=== PATIENT | female | born 1970 | race Caucasian/White ===

== ENCOUNTER 2016-09-20 09:04 | Emergency (ER) | payer MEDICAID ==
[~2016-09-20] VITALS: Ht 162.6 cm; Wt 98.5 kg
[~2016-09-20 09:04] MED LIST: PROM25TA5 PO; TRAM50 PO
[2016-09-20 09:19] VITALS: BP 125/87; PULSE 74; RESP 16; TEMP 98.1; O2SAT 98
--- NOTE | 2016-09-20 10:25 | PD ---
HPI Chief Complaint: Musculoskeletal Complaint Time Seen by Provider: 10:15 Travel History International Travel<30 days: No Contact w/Intl Traveler<30days: No Traveled to known affect area: No History of Present Illness HPI This is a 46 -year-old female who presents to the emergency department with left -sided hip pain that's been going on for years, intermittent, worse with walking , improved with rest. She says the pain starts at her hip and radiates down to her knee and she feels like something is rubbing on itself when she walks. She also says that 3 days ago she lifted a couch and she's been having some pain in the side of her neck and in her shoulder particularly with movement. She does have some numbness and tingling in the left arm intermittently. She says she was seen here in the emergency department in the past and told she had a strained muscle in her leg but it never got better. She doesn't have a primary care doctor. PFSH Past Medical History Medical History: Denies Significant Hx Diminished Hearing: No Immunizations Current: Yes Tetanus Vaccination: Unknown Influenza Vaccination: No ?: Not Menopausal: Yes : 6 Para: 5 Miscarriage: 1 : 0 Tubal Ligation: Yes Past Surgical History Section: Yes (X1) Other Surgery: Yes (JAW) Social History Alcohol Use: No (DENIES) Tobacco Use: No (DENIES) Substance Use: No (DENIES) Allergies-Medications (Allergen,Severity, Reaction): Coded Allergies: No Known Allergies (Verified , 09/20/16) Reported Meds & Prescriptions Reported Meds & Active Scripts Active No Active Prescriptions or Reported Medications Review of Systems General / Constitutional: No: Fever Gastrointestinal: No: Nausea, Vomiting Physical Exam Narrative GENERAL: Well-nourished, well-developed patient. SKIN: Warm and dry. HEAD: Normocephalic. EYES: No scleral icterus. No injection or drainage. NECK: Supple, trachea midline. CARDIOVASCULAR: Regular rate and rhythm without murmurs. 2+ left DP pulse with normal capillary refill in the left foot. 2+ left radial pulse with normal capillary refill in the hand. RESPIRATORY: Breath sounds equal bilaterally. No accessory muscle use. GASTROINTESTINAL: Abdomen soft, non-tender, nondistended. MUSCULOSKELETAL: No cyanosis, or edema. Full range of motion of the left hip, some pain with hip flexion and hip abduction. Tender to palpation along the left trapezius muscle with no focal cervical spine tenderness. Neuro: Sensation and motor grossly intact in the left forearm. Data Data Last Documented VS Vital Signs Date Time Temp Pulse Resp B/P Pulse Ox O2 Delivery O2 Flow Rate FiO2 09/20/16 09:19 98.1 74 16 125/87 98 Orders Hip, Uni(Ap&Lat) Wo Ap Pelvis (09/20/16 ) MDM Medical Decision Making Medical Screen Exam Complete: Yes Emergency Medical Condition: Yes Interpretation(s) X-ray: No acute process Differential Diagnosis Osteoarthritis, bursitis, malignancy Narrative Course This is a 46-year-old female who presents to the emergency department with hip pain. This is been going on since at least 2013 when she was seen here in the emergency department and diagnosed with iliotibial band syndrome. She says it hasn't gotten any better. I did perform an x-ray which was negative for acute pathology or malignancy. Otherwise the patient's symptoms are subacute and I think she is appropriate for outpatient anti-inflammatory treatment and follow- up with orthopedics. Diagnosis Primary Impression: Hip pain Qualified Code: M25.552 - Pain of left hip joint Patient Instructions: General Instructions Additional Instructions: If you develop weakness of your legs, difficulty walking, numbness of her legs or your genital or rectal area, loss of your bowel or bladder, or difficulty urinating return to the emergency department immediately. Followup with your primary care physician in one week if your symptoms have not improved. Med/Other Pt SpecificInfo: Prescription(s) given Scripts Naproxen 500 Mg [id number] Mg PO BID PRN (PAIN SCALE 4 TO 10) #20 TAB Prov:Ria Mariano MD 09/20/16 Disposition: 01 DISCHARGE HOME Condition: Stable Ria Mariano MD Sep 20, 2016 10:24
--- NOTE | 2016-09-20 11:08 | RADHPO ---
EXAM DATE/TIME: 09/20/2016 10:26 [facility] COMPARISON: No previous studies available for comparison. INDICATIONS : Left hip pain for 1 yr. no known injury MEDICAL HISTORY : None. SURGICAL HISTORY : None. ENCOUNTER: Initial ACUITY: 1 year PAIN SCORE: 7/10 LOCATION: Left hip FINDINGS: AP and lateral views of the left hip demonstrate no fracture or dislocation. Mineralization is within normal limits and there is no significant arthropathy. No soft tissue abnormality is identified. The re is a nonspecific density overlying the left iliac bone on the lateral projection. CONCLUSION: 1. No significant left hip abnormality is identified. 2. Nonspecific density overlying the left iliac bone only visualized on the lateral view. Micheal Su MD on September 20, 2016 at 11:05 Board Certified Radiologist. This report was verified electronically.
[2016-09-20] MEDS ORDERED: NAPR500T PO (11:17)
== END 2016-09-20 11:29 | disposition home or self-care (01) ==
LOC: PHED 09:04
DX: M25.552 Pain in left hip (principal); M54.2 Cervicalgia; R20.0 Anesthesia of skin; R20.2 Paresthesia of skin; X50.0XXA Overexertion from strenuous movement or load, initial encounter
CPT/HCPCS: 73502; 99283

== ENCOUNTER 2017-01-15 00:19 | Emergency (ER) | payer MEDICAID ==
[~2017-01-15] VITALS: Ht 162.6 cm; Wt 100.0 kg
[~2017-01-15 00:19] MED LIST changes: +NAPR500T PO; -PROM25TA5 PO; -TRAM50 PO
[2017-01-15 00:23] VITALS: BP 133/93; PULSE 98; RESP 16; TEMP 99.4; O2SAT 96
[2017-01-15] MEDS ORDERED: SODIUM CHLORIDE 0.9% FLUSH 10 ML FLUSH IVF PRN (01:45)
[2017-01-15 01:49] VITALS: O2SAT 97
[2017-01-15 02:00] LABS: AUTOMATED NEUTROPHIL # 4.6 TH/MM3 (1.8-7.7); BASOPHIL % 0.6 % (0.0-2.0); EOSINOPHIL # 0.1 TH/MM3 (0-0.4); HEMATOCRIT 38.9 % (35.0-46.0); HEMO FLAGS DIFF FINAL; LYMPH % 20.7 % (9.0-44.0); LYMPHOCYTE # 1.4 TH/MM3 (1.0-4.8); MEAN CELL VOLUME 90.6 FL (80.0-100.0); MEAN CORPUSCULAR HEMOGLOBIN 30.9 PG (27.0-34.0); MEAN CORPUSCULAR HGB CONC 34.1 % (32.0-36.0); MONO % 8.7 % (0.0-8.0); PLATELET COUNT 208 TH/MM3 (150-450); RED CELL DISTRIBUTION WIDTH 13.3 % (11.6-17.2); WHITE BLOOD COUNT 6.7 TH/MM3 (4.0-11.0)
--- NOTE | 2017-01-15 02:16 | RADRPT ---
EXAM DATE/TIME: 01/15/2017 02:05 [facility] COMPARISON: No previous studies available for comparison. INDICATIONS : Chest pain with cough. MEDICAL HISTORY : None. SURGICAL HISTORY : Tubal ligation. ENCOUNTER: Initial ACUITY: 1 day PAIN SCORE: 8/10 LOCATION: Bilateral chest FINDINGS: PA and lateral views of the chest demonstrate the lungs to be symmetrically aerated without evidence of mass, solid infiltrate or effusion. There is mild streaky opacity in the right lower lobe. The car diomediastinal contours are unremarkable. Osseous structures are intact. CONCLUSION: 1. Mild streaky opacity in the right lower lobe which could indicate an early pneumonia. 2. No focal consolidation. Price Otero MD on January 15, 2017 at 2:14 Board Certified Radiologist. This report was verified electronically.
[2017-01-15 02:28] LABS: ALT (GPT) 56 U/L (10-53); ANION GAP 7 MEQ/L (5-15); AST (GOT) 30 U/L (15-37); BICARBONATE 26.6 MEQ/L (21.0-32.0); BLOOD UREA NITROGEN 13 MG/DL (7-18); CHLORIDE 102 MEQ/L (98-107); GLOMERULAR FILTRATION RATE 69 ML/MIN (>89); POTASSIUM 4.1 MEQ/L (3.5-5.1); SODIUM (NA) 136 MEQ/L (136-145)
[2017-01-15 02:30] LABS: ALKALINE PHOSPHATASE 64 U/L (45-117); TOTAL BILIRUBIN ADULT 0.5 MG/DL (0.2-1.0)
[2017-01-15] MEDS ORDERED: LEVA750T PO (03:00)
[2017-01-15] MEDS ORDERED: LEVOFLOXACIN 750 MG TAB PO ONE (03:00)
--- NOTE | 2017-01-15 03:00 | PD ---
HPI Chief Complaint: Respiratory Symptoms Time Seen by Provider: 01:39 Travel History International Travel<30 days: No Contact w/Intl Traveler<30days: No Traveled to known affect area: No History of Present Illness HPI Patient is a 46-year-old female presents emergency department with cough and congestion for the past week. Patient states she was evaluated in urgent care center was prescribed Augmentin but she wasn't able to fill it because the pharmacy was out. She called the urgent care center and they told her over the phone the return to reach her because her chest x-ray was read as pneumonia and she needed to go to the emergency department for IV antibiotics and be seen. Patient denies any fever denies any history of immunocompromise denies any lung history. PFSH Past Medical History Diminished Hearing: No Immunizations Current: Yes Influenza Vaccination: No ?: Not Menopausal: Yes : 6 Para: 5 Miscarriage: 1 : 0 Tubal Ligation: Yes Past Surgical History Section: Yes (X1) Gynecologic Surgery: Yes () Oral Surgery: Yes (JAW) Other Surgery: Yes (JAW) Social History Alcohol Use: No (DENIES) Tobacco Use: No (DENIES) Substance Use: No (DENIES) Allergies-Medications (Allergen,Severity, Reaction): Coded Allergies: No Known Allergies (Verified , 01/15/17) Reported Meds & Prescriptions Reported Meds & Active Scripts Active Levaquin (Levofloxacin) 750 Mg Tab 750 Mg PO DAILY 10 Days Review of Systems Except as stated in HPI: all other systems reviewed are Neg Physical Exam Narrative GENERAL: Well-developed well-nourished no apparent distress SKIN: Focused skin assessment warm/dry. HEAD: Atraumatic. Normocephalic. EYES: Pupils equal and round. No scleral icterus. No injection or drainage. ENT: No nasal bleeding or discharge. Mucous membranes pink and moist. TMs clear bilaterally, oropharynx pink and moist. NECK: Trachea midline. No JVD. CARDIOVASCULAR: Regular rate and rhythm. No murmur appreciated. RESPIRATORY: No accessory muscle use. Faint rales heard in the right lower lobe.. Breath sounds equal bilaterally. No increased work of breathing. GASTROINTESTINAL: Abdomen soft, non-tender, nondistended. Hepatic and splenic margins not palpable. MUSCULOSKELETAL: No obvious deformities. No clubbing. No cyanosis. No edema. NEUROLOGICAL: Awake and alert. No obvious cranial nerve deficits. Motor grossly within normal limits. Normal speech. PSYCHIATRIC: Appropriate mood and affect; insight and judgment normal. Data Data Last Documented VS Vital Signs Date Time Temp Pulse Resp B/P Pulse Ox O2 Delivery O2 Flow Rate FiO2 01/15/17 01:49 97 Room Air 01/15/17 00:23 99.4 98 16 133/93 Orders Chest, Pa & Lat (01/15/17 ) Complete Blood Count With Diff (01/15/17 01:39) Comprehensive Metabolic Panel (01/15/17 01:39) Ecg Monitoring (01/15/17 01:39) Iv Access Insert/Monitor (01/15/17 01:39) Oximetry (01/15/17 01:39) Oxygen Administration (01/15/17 01:39) Sodium Chloride 0.9% Flush (Ns Flush) (01/15/17 01:45) Levofloxacin (Levaquin) (01/15/17 03:00) Labs Laboratory Tests Test 01/15/17 01:45 White Blood Count 6.7 TH/MM3 Red Blood Count 4.30 MIL/MM3 Hemoglobin 13.3 GM/DL Hematocrit 38.9 % Mean Corpuscular Volume 90.6 FL Mean Corpuscular Hemoglobin 30.9 PG Mean Corpuscular Hemoglobin 34.1 % Concent Red Cell Distribution Width 13.3 % Platelet Count 208 TH/MM3 Mean Platelet Volume 7.7 FL Neutrophils (%) (Auto) 69.0 % Lymphocytes (%) (Auto) 20.7 % Monocytes (%) (Auto) 8.7 % Eosinophils (%) (Auto) 1.0 % Basophils (%) (Auto) 0.6 % Neutrophils # (Auto) 4.6 TH/MM3 Lymphocytes # (Auto) 1.4 TH/MM3 Monocytes # (Auto) 0.6 TH/MM3 Eosinophils # (Auto) 0.1 TH/MM3 Basophils # (Auto) 0.0 TH/MM3 CBC Comment DIFF FINAL Differential Comment Sodium Level 136 MEQ/L Potassium Level 4.1 MEQ/L Chloride Level 102 MEQ/L Carbon Dioxide Level 26.6 MEQ/L Anion Gap 7 MEQ/L Blood Urea Nitrogen 13 MG/DL Creatinine 0.88 MG/DL Estimat Glomerular Filtration 69 ML/MIN Rate Random Glucose 158 MG/DL Calcium Level 9.0 MG/DL Total Bilirubin 0.5 MG/DL Aspartate Amino Transf 30 U/L (AST/SGOT) Alanine Aminotransferase 56 U/L (ALT/SGPT) Alkaline Phosphatase 64 U/L Total Protein 7.2 GM/DL Albumin 3.6 GM/DL MDM Medical Decision Making Medical Screen Exam Complete: Yes Emergency Medical Condition: Yes Differential Diagnosis Pneumonia, URI, bronchitis, sepsis unlikely. Narrative Course Patient roomed in emergency department, labs are reassuring, Last 24 hours Impressions Chest X-Ray 01/15/17 0000 Signed Impressions: Service Date/Time: December 02:05 - CONCLUSION: 1. Mild streaky opacity in the right lower lobe which could indicate an early pneumonia. 2. No focal consolidation. Price Otero MD Patient appears well in no obvious distress, she is low risk by PSI and curb 65 score is. She has no indication of sepsis. She is stable for discharge discussed symptomatic management returned ED criteria. We'll switch her Augmentin to Levaquin. Diagnosis Primary Impression: CAP (community acquired pneumonia) Med/Other Pt SpecificInfo: Prescription(s) given Scripts Levofloxacin (Levaquin)750 Mg [id number] Mg PO DAILY 10 Days Ref 0 Prov:Van Mata MD 01/15/17 Disposition: 01 DISCHARGE HOME Condition: Stable Van Mata MD January 15, 2017 03:00
== END 2017-01-15 03:40 | disposition home or self-care (01) ==
LOC: NEPC 00:19
DX: J18.9 Pneumonia, unspecified organism (principal)
CPT/HCPCS: 71020; 80053; 85025; 99283

== ENCOUNTER 2017-01-16 11:42 | Emergency (ER) | payer MEDICAID ==
[~2017-01-16 11:42] MED LIST changes: +LEVA750T PO; -NAPR500T PO
[2017-01-16 11:56] VITALS: BP 127/86; PULSE 89; RESP 16; TEMP 97.6; O2SAT 96
--- NOTE | 2017-01-16 11:56 | PD ---
HPI . here for a note to go back to work Chief Complaint: Medical Clearance Time Seen by Provider: 11:55 Travel History International Travel<30 days: No Contact w/Intl Traveler<30days: No Traveled to known affect area: No History of Present Illness HPI 46-year-old female who was seen for pneumonia here requesting a note to return to work. Patient says that she was given a an excuse until January 18, but she wants to return to work today. She denies any fever or chills. She has no complaints. PFSH Past Medical History Diminished Hearing: No Immunizations Current: Yes Menopausal: Yes : 6 Para: 5 Miscarriage: 1 : 0 Tubal Ligation: Yes Past Surgical History Section: Yes (X1) Gynecologic Surgery: Yes () Oral Surgery: Yes (JAW) Other Surgery: Yes (JAW) Social History Alcohol Use: No (DENIES) Tobacco Use: No (DENIES) Substance Use: No (DENIES) Allergies-Medications (Allergen,Severity, Reaction): Coded Allergies: No Known Allergies (Verified , 01/15/17) Reported Meds & Prescriptions Reported Meds & Active Scripts Active Levaquin (Levofloxacin) 750 Mg Tab 750 Mg PO DAILY 10 Days Review of Systems General / Constitutional: No: Fever Eyes: No: Visual changes HENT: No: Headaches Cardiovascular: No: Chest Pain or Discomfort Respiratory: No: Shortness of Breath Gastrointestinal: No: Abdominal Pain Genitourinary: No: Dysuria Musculoskeletal: No: Pain Skin: No Rash Neurologic: No: Weakness Psychiatric: No: Depression Endocrine: No: Polydipsia Hematologic/Lymphatic: No: Easy Bruising Physical Exam Narrative GENERAL: AAO x 3, no acute distress, Well-nourished, well-developed patient. SKIN: Warm and dry. No visible rashes or bruising. HEAD: Normocephalic and atraumatic. EYES: No scleral icterus. No injection or drainage. EOM intact, PERRLA ENT: No nasal drainage noted. Mucous membranes pink. Airway patent. NECK: Supple, trachea midline. No JVD. CARDIOVASCULAR: Regular rate and rhythm without murmurs, gallops, or rubs. RESPIRATORY: Breath sounds equal bilaterally. No accessory muscle use. No rhonchi or rales. GASTROINTESTINAL: Visual inspection normal EXTREMITIES: No cyanosis or edema. BACK: Nontender without obvious deformity. No CVA tenderness. PSYCH: AAO x 3, normal affect. Data Data Last Documented VS Vital Signs Date Time Temp Pulse Resp B/P Pulse Ox O2 Delivery O2 Flow Rate FiO2 01/16/17 11:56 97.6 89 16 127/86 96 Room Air MDM Medical Decision Making Medical Screen Exam Complete: Yes Emergency Medical Condition: Yes Medical Record Reviewed: Yes Differential Diagnosis Pneumonia, medical clearance, wellness exam Narrative Course This is a 46-year-old female here requesting a note to return to work. She has no complaints. She is taking her antibiotics. She denies any fever or chills. Diagnosis Primary Impression: CAP (community acquired pneumonia) Patient Instructions: General Instructions Departure Forms: Tests/Procedures, Work Release Enter return to work date: January 16, 2017 Additional Instructions: Continue taking medications as prescribed Med/Other Pt SpecificInfo: No Change to Meds Disposition: 01 DISCHARGE HOME Condition: Stable Arabella Hernandez January 16, 2017 11:55
== END 2017-01-16 12:06 | disposition home or self-care (01) ==
LOC: NEPK 11:42
DX: J18.9 Pneumonia, unspecified organism (principal)
CPT/HCPCS: 99282

== ENCOUNTER 2017-04-29 20:03 | Emergency (ER) | payer MEDICAID ==
[~2017-04-29] VITALS: Ht 162.6 cm; Wt 99.3 kg
[2017-04-29 20:11] VITALS: BP 128/82; PULSE 80; RESP 12; TEMP 98.2; O2SAT 99
--- NOTE | 2017-04-29 21:13 | PD ---
HPI Chief Complaint: Laceration/Skin Injury Time Seen by Provider: 21:02 Travel History International Travel<30 days: No Contact w/Intl Traveler<30days: No Traveled to known affect area: No History of Present Illness HPI 47-year-old female presents to the emergency room for evaluation of laceration to her right lateral ankle that occurred just prior to arrival. Patient states she was weed whacking when the string accidentally struck her on her ankle. She called her nurse friend who told her to have it evaluated because it is going over the tattoo. Patient reports minimal pain. Unknown last tetanus. History Past Medical Histgory Medical History: Denies Significant Hx Tetanus Vaccination: > 5 Years LMP: 3 months, irr. Menopausal: Yes Social History Alcohol Use: No Tobacco Use: No Allergies-Medications (Allergen,Severity, Reaction): Coded Allergies: No Known Allergies (Verified , 04/29/17) Reported Meds & Prescriptions Reported Meds & Active Scripts Active Review of Systems Except as stated in HPI: all other systems reviewed are Neg Physical Exam Narrative GENERAL: Well-nourished, well-developed female in no acute distress. Afebrile. Ambulatory. SKIN: Focused skin assessment warm/dry. There is a 7 cm linear contusion to the right lateral ankle with a superficial abrasion going through the first layer of skin in the middle of the contusion. The abrasion does not overlie the tattoo. HEAD: Normocephalic. EYES: No scleral icterus. No injection or drainage. NECK: Supple, trachea midline. No JVD or lymphadenopathy. CARDIOVASCULAR: Regular rate and rhythm without murmurs, gallops, or rubs. RESPIRATORY: Breath sounds equal bilaterally. No accessory muscle use. Data Data Last Documented VS Vital Signs Date Time Temp Pulse Resp B/P (MAP) Pulse Ox O2 Delivery O2 Flow Rate FiO2 04/29/17 20:11 98.2 80 12 128/82 (97) 99 MDM Medical Screen Exam Complete: Yes Emergency Medical Condition: No Differential Diagnosis Contusion Narrative Course 47-year-old female presents to the emergency room for evaluation of possible laceration to the right lateral ankle occurred just prior to arrival. Patient states she is here out of concern for developing an infection. She cut herself with the string of a weed whacker. Physical exam reveals a superficial contusion over the right lateral ankle with an abrasion through the first layer of skin in the center of the contusion. There is no laceration. Wound was thoroughly cleansed with soap and water. Patient was given wound care instructions. There are no urgent or emergent medical conditions this time. A medical screening exam was performed: At the time of evaluation the presenting medical condition was determined not to be of an emergent nature. The patient was given the option of receiving additional care, but declined. Patient was given options for additional community resources from which to obtain care. The Patient Has Been advised to seek medical attention for their presenting complaint. The patient has been advised to return to the ER at any time if an emergent condition develops. Primary Impression: Encounter for medical screening examination Scripts No Active Prescriptions or Reported Meds Disposition: 01 DISCHARGE HOME Condition: Stable Jocelyn Case Apr 29, 2017 21:13
== END 2017-04-29 21:13 | disposition left against medical advice (07) ==
LOC: PHEFT 20:03
DX: S91.011A Laceration without foreign body, right ankle, initial encounter (principal); W29.3XXA Contact with powered garden and outdoor hand tools and machinery, initial encounter; Y93.H2 Activity, gardening and landscaping
CPT/HCPCS: 99281

== ENCOUNTER 2018-01-07 15:42 | Emergency (ER) | payer MEDICAID, OTHER ==
[~2018-01-07] VITALS: Ht 162.6 cm; Wt 96.0 kg
[2018-01-07 15:47] VITALS: BP 163/83; PULSE 82; RESP 16; TEMP 98.7; O2SAT 98
--- NOTE | 2018-01-07 16:11 | PD ---
HPI Chief Complaint: Musculoskeletal Complaint Time Seen by Provider: 16:03 Travel History International Travel<30 days: No Contact w/Intl Traveler<30days: No Traveled to known affect area: No History of Present Illness HPI 47-year-old female presents emergency department for evaluation of left hip pain after performing hip flexor exercises today. Patient states that she developed the pain this morning and is gradually worsened throughout the day. Patient states she has trouble walking because of the sensation as if her leg is giving out. She describes the pain is 'nagging' with occasional shooting pain into her left leg to her foot. She denies any history of this pain previously. Denies trauma to the back. She denies fever, chills, loss of bowel or bladder function, saddle anesthesia, IVDU. PFSH Past Medical History Diminished Hearing: No Immunizations Current: Yes Tetanus Vaccination: Unknown ?: Not Menopausal: Yes : 6 Para: 5 Miscarriage: 1 : 0 Tubal Ligation: Yes Past Surgical History Section: Yes (X1) Gynecologic Surgery: Yes () Oral Surgery: Yes (JAW) Other Surgery: Yes (JAW) Social History Alcohol Use: No Tobacco Use: No Substance Use: No Allergies-Medications (Allergen,Severity, Reaction): Coded Allergies: No Known Allergies (Verified Adverse Reaction, Unknown, 01/07/18) Reported Meds & Prescriptions Reported Meds & Active Scripts Active Robaxin (Methocarbamol) 500 Mg Tab 500 Mg PO TID 3 Days Medrol Dosepak (Methylprednisolone) 4 Mg Dspk 4 Mg PO DIRECTED Per Pharmacist direction Review of Systems Except as stated in HPI: all other systems reviewed are Neg Physical Exam Narrative GENERAL: Well-nourished, well-developed patient. SKIN: Focused skin assessment warm/dry. HEAD: Normocephalic. EYES: No scleral icterus. No injection or drainage. NECK: Supple, trachea midline. No midline TTP CARDIOVASCULAR: Regular rate and rhythm without murmurs, gallops, or rubs. RESPIRATORY: Breath sounds equal bilaterally. No accessory muscle use. MUSCULOSKELETAL: No cyanosis, or edema. BACK: No CVA tenderness. No rash. No point tenderness on palpation of the spine. L glut- TTP with obvious muscle spasms, reproducing her pain. No TTP to lower extremities. NEUROLOGICAL: Awake and alert. Motor and sensory grossly within normal limits. Five out of 5 muscle strength in all muscle groups except for left leg. grade 4/5 secondary to pain. Normal speech. Data Data Last Documented VS Vital Signs Date Time Temp Pulse Resp B/P (MAP) Pulse Ox O2 Delivery O2 Flow Rate FiO2 01/07/18 15:47 98.7 82 16 163/83 (109) 98 Orders Orders Ed Discharge Order (01/07/18 16:13) MDM Medical Decision Making Medical Screen Exam Complete: Yes Emergency Medical Condition: Yes Differential Diagnosis lumbago, sciatica, muscle spasms, fracture, cauda equina syndrome Narrative Course 47 year female presents emergency department for evaluation of left hip/ complete pain that began this morning after performing hip flexor exercises. Patient denies any history of this previously. Says she has occasional shooting pain down to her foot. She denies any trauma. No red flag signs or symptoms. Patient vital signs are stable. Physical exam findings demonstrate TTP to left glut, reproducing her pain. Grade 4/5 strength left lower extremity, secondary to pain. Neurovascularly intact bilateral lower extremities. Patient will be discharged with Robaxin and Medrol Dosepak. Advised that she should perform stretches to reduce the possibility of worsening symptoms. She should follow-up with the primary care physician within 2-3 days for reevaluation. Return for worsening or persistent symptoms. Diagnosis Primary Impression: Muscle spasm Additional Impression: Sciatic leg pain Referrals: Orthopedist Primary Care Physician Departure Forms: Tests/Procedures, Work Release Enter return to work date: January 09, 2018 Additional Instructions: Perform light stretches of the lower back and legs, and alternate heat and ice packs. If you develop increased pain, weakness, fever, chills, or bowel or bladder issues, return to the ED for further treatment and evaluation. Follow up with your primary care physician in 2-3 days. Scripts Methocarbamol (Robaxin) 500 Mg Tab 500 MG PO TID for Muscle Spasm for 3 Days, TAB 0 Refills Prov: Eliseo Weiss MD 01/07/18 Methylprednisolone Dosepak (Medrol Dosepak) 4 Mg Dspk 4 MG PO DIRECTED, #1 DSPK 0 Refills Per Pharmacist direction Prov: Eliseo Weiss MD 01/07/18 Disposition: 01 DISCHARGE HOME Condition: Stable Antionette Miramontes January 07, 2018 16:11
[2018-01-07] MEDS ORDERED: ROBA500T PO (16:13)
[2018-01-07] MEDS ORDERED: MEDR4PAK PO (16:13)
== END 2018-01-07 16:19 | disposition home or self-care (01) ==
LOC: PHEFT 15:42
DX: M62.838 Other muscle spasm (principal); M54.32 Sciatica, left side
CPT/HCPCS: 99283